=== PATIENT | male | born 1940 | race Caucasian/White ===

== ENCOUNTER 2021-03-07 11:01 | Outpatient (RCR) | payer MEDICARE, OTHER ==
[~2021-03-07 11:01] MED LIST: LIDOCAINE VISC 2% SOLN 15 ML UDC ONE; LIDOCAINE/PRILOCAINE 2.5-2.5% KIT ONE
[2021-03-07] MEDS ORDERED: LIDOCAINE/PRILOCAINE 2.5-2.5% KIT ONE (13:37)
== END 2021-03-15 ==
LOC: WCC 11:01
PROVIDERS: ATTEND Internal Medicine Infectious Disease
DX: E11.9 Type 2 diabetes mellitus without complications (principal); S81.002A Unspecified open wound, left knee, initial encounter; L03.116 Cellulitis of left lower limb; R60.0 Localized edema; D01.0 Carcinoma in situ of colon; I10 Essential (primary) hypertension; Y92.89 Other specified places as the place of occurrence of the external cause

== ENCOUNTER 2021-04-07 12:13 | Outpatient (RCR) | payer MEDICARE ==
[~2021-04-07 12:13] MED LIST changes: +MUPIROCIN 2% OINT 22 GM TUBE ONE
== END 2021-04-15 ==
LOC: WCC 12:13
PROVIDERS: ATTEND Internal Medicine Infectious Disease
DX: E11.9 Type 2 diabetes mellitus without complications (principal); S81.002A Unspecified open wound, left knee, initial encounter; S81.801A Unspecified open wound, right lower leg, initial encounter; L03.116 Cellulitis of left lower limb; R60.0 Localized edema; L84 Corns and callosities; D01.0 Carcinoma in situ of colon; I10 Essential (primary) hypertension; W22.8XXA Striking against or struck by other objects, initial encounter; Y92.89 Other specified places as the place of occurrence of the external cause

== ENCOUNTER 2021-05-12 11:06 | Outpatient (RCR) | payer MEDICARE, OTHER | END 2021-05-15 | LOC: WCC 11:06 | PROVIDERS: ATTEND Internal Medicine Infectious Disease | DX: E11.9 Type 2 diabetes mellitus without complications (principal); L03.116 Cellulitis of left lower limb; S81.002A Unspecified open wound, left knee, initial encounter; S81.802A Unspecified open wound, left lower leg, initial encounter; S81.801A Unspecified open wound, right lower leg, initial encounter; R60.0 Localized edema; L84 Corns and callosities; D01.0 Carcinoma in situ of colon; I10 Essential (primary) hypertension; W22.8XXA Striking against or struck by other objects, initial encounter; Y92.89 Other specified places as the place of occurrence of the external cause ==